=== PATIENT | female | born 1980 | race Two or more races ===

== ENCOUNTER 2025-02-21 09:34 | Emergency (ER) | payer OTHER ==
[~2025-02-21] VITALS: Ht 152.4 cm; Wt 77.1 kg
[2025-02-21] MEDS ORDERED: CYTOMEL5 MCG (10:01)
[2025-02-21 13:08] LABS: HEMATOCRIT 43.1 % (36.0-45.00); HEMOGLOBIN 14.8 g/dL (12.0-15.00); MEAN CELL VOLUME 85.1 fL (80.00-100.00); MEAN CORPUSCULAR HEMOGLOBIN 29.1 pg (27.00-32.0); MEAN CORPUSCULAR HGB CONC 34.2 g/dl (32.0-36.0); PLATELET COUNT 265 K/uL (150-450); RED BLOOD COUNT 5.07 M/uL (4.00-6.00); RED CELL DISTRIBUTION WIDTH 14.7 % (11.5-14.5)
[2025-02-21 13:38] LABS: ALBUMIN 4.5 gm/dL (3.4-5.0); BILIRUBIN TOTAL 0.39 mg/dL (0.3-1.2); C-REACTIVE PROTEIN 0.57 MG/DL (0.00-0.29); CALCIUM 10.2 mg/dL (8.5-10.1); CREATININE SERUM 0.84 mg/dL (0.55-1.02); GFR 74.35; GLOBULINA 4.5 G/DL (2.4-3.5); PARTIAL THROMBOPLASTIN TIME 29.9 SECONDS (22.0-34.0); POTASSIUM 3.99 mEq/L (3.5-5.1)
[2025-02-21 13:44] LABS: D DIMER < 0.19 MG/L
[2025-02-21 14:16] LABS: INR 1.09
[2025-02-21 14:21] LABS: PROTHROMBIN TIME 11.8 SECONDS (9.0-11.5)
[2025-02-21 16:15] VITALS: BP 148/84; O2SAT 98
== END 2025-02-21 16:16 | disposition home or self-care (01) ==
LOC: ER 09:35
PROVIDERS: General Practice
DX: I10 Essential (primary) hypertension (principal); R15.9 Full incontinence of feces

== ENCOUNTER 2025-02-23 08:10 | Outpatient (CLI) | payer OTHER ==
[~2025-02-23 08:10] MED LIST: CYTOMEL5 MCG
== END 2025-02-23 08:29 | disposition home or self-care (01) ==
LOC: TOM 08:10
PROVIDERS: ATTEND Neuromusculoskeletal Medicine & OMM
DX: R94.09 Abnormal results of other function studies of central nervous system (principal); R74.8 Abnormal levels of other serum enzymes; R10.11 Right upper quadrant pain; I72.9 Aneurysm of unspecified site; I65.1 Occlusion and stenosis of basilar artery; I65.09 Occlusion and stenosis of unspecified vertebral artery; Q28.2 Arteriovenous malformation of cerebral vessels

== ENCOUNTER 2025-03-01 08:13 | Outpatient (CLI) | payer OTHER | END 2025-03-01 08:32 | disposition home or self-care (01) | LOC: MRI 08:13 | PROVIDERS: ATTEND Neuromusculoskeletal Medicine & OMM | DX: R51.9 Headache, unspecified (principal) | CPT/HCPCS: 70553 ==